=== PATIENT | male | born 1950 | race Caucasian/White ===

== ENCOUNTER 2016-09-03 22:36 | Emergency (ER) | payer OTHER ==
[~2016-09-03] VITALS: Ht 172.7 cm; Wt 84.4 kg
[2016-09-03 22:50] VITALS: BP 149/85; PULSE 82; RESP 18; TEMP 98.1; O2SAT 97
[2016-09-04 00:07] VITALS: BP 147/88; PULSE 81; RESP 18; TEMP 98.1; O2SAT 96
[2016-09-04] MEDS ORDERED: METO50TA PO (00:07)
[2016-09-04] MEDS ORDERED: SIMV5TAB3 PO (00:07)
[2016-09-04] MEDS ORDERED: LISI10TA3 PO (00:07)
[2016-09-04] MEDS ORDERED: SODIUM CHLORIDE 0.9% FLUSH 10 ML FLUSH IV FLUSH PRN (01:00)
[2016-09-04 01:05] VITALS: BP 144/81; PULSE 82; RESP 18; O2SAT 97
[2016-09-04 01:14] LABS: AUTOMATED NEUTROPHIL # 7.8 TH/MM3 (1.8-7.7); BASOPHIL # 0.1 TH/MM3 (0-0.2); BASOPHIL % 1.6 % (0.0-2.0); EOSINOPHIL # 0.1 TH/MM3 (0-0.4); EOSINOPHIL % 0.6 % (0.0-4.0); HEMATOCRIT 48.6 % (39.0-51.0); LYMPH % 8.8 % (9.0-44.0); LYMPHOCYTE # 0.8 TH/MM3 (1.0-4.8); MEAN CELL VOLUME 90.9 FL (80.0-100.0); MEAN CORPUSCULAR HEMOGLOBIN 30.4 PG (27.0-34.0); MEAN CORPUSCULAR HGB CONC 33.5 % (32.0-36.0); MONO % 4.2 % (0.0-8.0); NEUT % 84.8 % (16.0-70.0); PLATELET COUNT 238 TH/MM3 (150-450); RED BLOOD COUNT 5.35 MIL/MM3 (4.50-5.90); RED CELL DISTRIBUTION WIDTH 12.2 % (11.6-17.2); WHITE BLOOD COUNT 9.2 TH/MM3 (4.0-11.0)
[2016-09-04 01:18] LABS: CHLORIDE 103 MEQ/L (98-107); HEMO FLAGS DIFF FINAL; POTASSIUM 3.8 MEQ/L (3.5-5.1); SODIUM (NA) 141 MEQ/L (136-145)
--- NOTE | 2016-09-04 01:21 | RADHPO ---
EXAM DATE/TIME: 09/04/2016 01:03 [facility] COMPARISON: No previous studies available for comparison. INDICATIONS : Chest pain. MEDICAL HISTORY : None. SURGICAL HISTORY : CABG. ENCOUNTER: Initial ACUITY: 1 day PAIN SCORE: 5/10 LOCATION: Right chest FINDINGS: The cardiac silhouette is normal in transverse diameter. The lungs are free of acute parenchymal opac ity. No effusions are identified. Median sternotomy wires are present. There is linear atelectasis ve rsus scar on the left. CONCLUSION: 1. Subsegmental atelectasis versus scar left base. There is no evidence of pneumonia. Fernando Martines MD on September 04, 2016 at 1:19 Board Certified Radiologist. This report was verified electronically.
[2016-09-04 01:22] LABS: ANION GAP 11 MEQ/L (5-15); APTT (PATIENT) 27.2 SEC (24.3-30.1); BICARBONATE 27.2 MEQ/L (21.0-32.0); BLOOD UREA NITROGEN 16 MG/DL (7-18); MAGNESIUM 2.5 MG/DL (1.5-2.5); PROTHROMBIN TIME - PATIENT 10.8 SEC (9.8-11.6)
[2016-09-04 01:25] LABS: ALT (GPT) 27 U/L (12-78); AST (GOT) 16 U/L (15-37); GLOMERULAR FILTRATION RATE 67 ML/MIN (>89)
[2016-09-04 01:26] LABS: TOTAL BILIRUBIN ADULT 0.6 MG/DL (0.2-1.0)
[2016-09-04 01:28] LABS: ALKALINE PHOSPHATASE 96 U/L (45-117)
[2016-09-04 01:32] LABS: CREATINE KINASE 74 U/L (39-308)
[2016-09-04] MEDS ORDERED: IOHEXOL 350 MG/ML 10 ML VIAL (for RAD DIAG) IV ONE (01:52)
--- NOTE | 2016-09-04 02:19 | PD ---
HPI Chief Complaint: Flank/Kidney Pain Time Seen by Provider: 00:46 Travel History International Travel<30 days: No Contact w/Intl Traveler<30days: No Traveled to known affect area: No History of Present Illness HPI 65-year-old male presents to the emergency department by private transportation for complaint of right-sided flank pain and right upper quadrant pain times one day. Patient states recently he has had difficulty with taking oral intake due to complications from a dental extraction 6 days ago. Patient had reportedly an adverse/allergic reaction to amoxicillin with tongue swelling subsequently developed oral candidiasis and only today was he able to take any solid foods and prepared himself rice and carrots with butter. Patient noted after eating food started developing pain in the right flank and right upper quadrant area. No prior history of gallbladder disease or kidney stones. No fever or chills. Nausea without vomiting no hematemesis coffee-ground emesis or bilious emesis. Patient denies chest pain. Patient does have history of cardiac disease in the past. Patient reports pain is verbal 4-7/10 in intensity. Prior history of CAD , myocardial infarction, hypertension, dyslipidemia, cardiac catheterization with stent placement, and CABG. [facility] Past Medical History Narrative Medical CAD, cardiac catheterization, myocardial infarction, stent placement, CABG, hypertension, dyslipidemia, borderline diabetes, dental extraction; no tobacco use; nursing notes reviewed Cardiac Catheterization: Yes Cardiovascular Problems: Yes High Cholesterol: Yes Diminished Hearing: No Hypertension: Yes Myocardial Infarction: Yes Tetanus Vaccination: Unknown Influenza Vaccination: Yes Past Surgical History Cardiac Surgery: Yes Coronary Artery Bypass Graft: Yes Coronary Stent: Yes Oral Surgery: Yes (teeth removed) Social History Alcohol Use: No Tobacco Use: No Substance Use: No Allergies-Medications (Allergen,Severity, Reaction): Coded Allergies: Amoxicillin (Verified Allergy, Intermediate, rash, 09/04/16) Reported Meds & Prescriptions Reported Meds & Active Scripts Active Lortab (Hydrocodone-Acetaminophen) 5-325 Mg Tab 1 Tab PO Q6H PRN Zofran Odt (Ondansetron Odt) 4 Mg Tab 4 Mg SL Q6HR PRN Reported Lisinopril 10 Mg Tab 10 Mg PO DAILY Metoprolol Tartrate 50 Mg Tab 50 Mg PO DAILY Simvastatin 5 Mg Tab 5 Mg PO DAILY Review of Systems Except as stated in HPI: all other systems reviewed are Neg General / Constitutional: No: Fever, Chills HENT: No: Congestion Cardiovascular: No: Chest Pain or Discomfort Respiratory: No: Shortness of Breath Gastrointestinal: Positive: Nausea, Abdominal Pain, No: Vomiting Genitourinary: Positive: Flank Pain, No: Dysuria, Hematuria, Decreased Urinary Output Musculoskeletal: No: Myalgias, Arthralgias Skin: No Rash Neurologic: No: Weakness, Dizziness Psychiatric: No: Anxiety Endocrine: No: Cold Intolerance Hematologic/Lymphatic: No: Easy Bruising Physical Exam Narrative GENERAL: Well-developed well-nourished male in no acute distress no respiratory distress SKIN: Warm and dry. HEAD: Normocephalic. EYES: No scleral icterus. No injection or drainage. NECK: Supple, trachea midline. No JVD or lymphadenopathy. CARDIOVASCULAR: Regular rate and rhythm without murmurs, gallops, or rubs. RESPIRATORY: Breath sounds equal bilaterally. No accessory muscle use. GASTROINTESTINAL: Abdomen soft, right upper quadrant and epigastric tenderness without guarding or rebound, nondistended. MUSCULOSKELETAL: No cyanosis, or edema. BACK: Nontender without obvious deformity. Right-sided flank/CVA tenderness. Data Data Last Documented VS Vital Signs Date Time Temp Pulse Resp B/P Pulse Ox O2 Delivery O2 Flow Rate FiO2 09/04/16 04:32 76 18 97 09/04/16 04:15 148/82 Room Air 09/04/16 00:07 98.1 Orders Complete Blood Count With Diff (09/04/16 00:46) Comprehensive Metabolic Panel (09/04/16 00:46) Lipase (09/04/16 00:46) Prothrombin Time / Inr (Pt) (09/04/16 00:46) Act Partial Throm Time (Ptt) (09/04/16 00:46) Urinalysis - C+S If Indicated (09/04/16 00:46) Ct Abd/Pel W Iv Contrast(Rout) (09/04/16 00:46) Iv Access Insert/Monitor (09/04/16 00:46) Ecg Monitoring (09/04/16 00:46) Oximetry (09/04/16 00:46) Sodium Chloride 0.9% Flush (Ns Flush) (09/04/16 01:00) Chest, Single Ap (09/04/16 00:46) Troponin I (09/04/16 00:46) Ckmb (Isoenzyme) Profile (09/04/16 00:46) Magnesium (Mg) (09/04/16 00:46) Iohexol 350 Inj (Omnipaque 350 Inj) (09/04/16 01:52) Ondansetron Inj (Zofran Inj) (09/04/16 03:15) Hydromorphone Pf Inj (Dilaudid Pf Inj) (09/04/16 03:15) Sodium Chlor 0.9% 1000 Ml Inj (Ns 1000 M (09/04/16 03:15) NPO (09/04/16 03:03) Labs Laboratory Tests Test 09/04/16 09/04/16 00:40 02:35 White Blood Count 9.2 TH/MM3 Red Blood Count 5.35 MIL/MM3 Hemoglobin 16.3 GM/DL Hematocrit 48.6 % Mean Corpuscular Volume 90.9 FL Mean Corpuscular Hemoglobin 30.4 PG Mean Corpuscular Hemoglobin 33.5 % Concent Red Cell Distribution Width 12.2 % Platelet Count 238 TH/MM3 Mean Platelet Volume 10.4 FL Neutrophils (%) (Auto) 84.8 % Lymphocytes (%) (Auto) 8.8 % Monocytes (%) (Auto) 4.2 % Eosinophils (%) (Auto) 0.6 % Basophils (%) (Auto) 1.6 % Neutrophils # (Auto) 7.8 TH/MM3 Lymphocytes # (Auto) 0.8 TH/MM3 Monocytes # (Auto) 0.4 TH/MM3 Eosinophils # (Auto) 0.1 TH/MM3 Basophils # (Auto) 0.1 TH/MM3 CBC Comment DIFF FINAL Differential Comment Prothrombin Time 10.8 SEC Prothromb Time International 1.0 RATIO Ratio Activated Partial 27.2 SEC Thromboplast Time Sodium Level 141 MEQ/L Potassium Level 3.8 MEQ/L Chloride Level 103 MEQ/L Carbon Dioxide Level 27.2 MEQ/L Anion Gap 11 MEQ/L Blood Urea Nitrogen 16 MG/DL Creatinine 1.10 MG/DL Estimat Glomerular Filtration 67 ML/MIN Rate Random Glucose 165 MG/DL Calcium Level 9.7 MG/DL Magnesium Level 2.5 MG/DL Total Bilirubin 0.6 MG/DL Aspartate Amino Transf 16 U/L (AST/SGOT) Alanine Aminotransferase 27 U/L (ALT/SGPT) Alkaline Phosphatase 96 U/L Total Creatine Kinase 74 U/L Troponin I LESS THAN 0.02 NG/ML Total Protein 7.9 GM/DL Albumin 4.0 GM/DL Lipase 203 U/L Urine Color YELLOW Urine Turbidity CLEAR Urine pH 5.5 Urine Specific [place] GREATER THAN 1.035 Urine Protein TRACE mg/dL Urine Glucose (UA) NEG mg/dL Urine Ketones TRACE mg/dL Urine Occult Blood NEG Urine Nitrite NEG Urine Bilirubin NEG Urine Leukocyte Esterase NEG Urine RBC 0-2 /hpf Urine WBC 0-2 /hpf Urine Squamous Epithelial 0-5 /hpf Cells Urine Calcium Oxalate Crystals MOD /hpf Urine Bacteria NONE /hpf Microscopic Urinalysis Comment CULT NOT INDICATED MDM Medical Decision Making Medical Screen Exam Complete: Yes Emergency Medical Condition: Yes Medical Record Reviewed: Yes Interpretation(s) CBC & BMP Diagram 09/04/16 00:40 Vital Signs Date Time Temp Pulse Resp B/P Pulse Ox O2 Delivery O2 Flow Rate FiO2 09/04/16 01:05 82 18 144/81 97 Room Air 09/04/16 00:10 82 18 09/04/16 00:07 98.1 81 18 147/88 96 09/03/16 22:50 98.1 82 18 149/85 97 Last Impressions Chest X-Ray 09/04/1645 Signed Impressions: Service Date/Time: Sunday, September 04, 2016 01:03 - CONCLUSION: 1. Subsegmental atelectasis versus scar left base. There is no evidence of pneumonia. Fernando Martines MD Abdomen/Pelvis CT 09/04/1645 Signed Impressions: Service Date/Time: Sunday, September 04, 2016 01:43 - CONCLUSION: 1. No evidence of acute abdominal or pelvic process. No masses are identified. 2. 4 mm stone within the neck of the gallbladder without pericholecystic fluid or ductal dilatation Fernando Martines MD Differential Diagnosis Abdominal pain, cholecystitis, choledocholithiasis, pancreatitis, peptic ulcer disease, atypical chest pain, renal colic, musculoskeletal pain, shingles Narrative Course Patient placed on radiographer cardiac catheterization IV access obtained specimens collected and sent for resulting CT abdomen and pelvis ordered Lab values pending EKG normal sinus rhythm rate [address] elevation or injury pattern change noted age-indeterminate QS inferiorly with nonspecific anterior T wave changes CBC with automated differential total white cell count within normal limits 84% neutrophils by automated differential CK 74, not elevated; troponin I less than 0.02, not elevated At 3:50 AM patient reassessed abdomen is soft nontender no guarding or rebound no reproducible Blanton's sign. Patient's case discussed with on-call general surgery request patient to follow up as an outpatient for offices on Tuesday call office on Tuesday to schedule appointment return to the emergency department subsequently for any recurrent symptoms or change in condition Physician Communication Physician Communication discussed with Dr Holly ---will see in the office on Tuesday Diagnosis Primary Impression: Biliary colic Additional Impression: Gallstone Qualified Code: K80.20 - Calculus of gallbladder without cholecystitis without obstruction Patient Instructions: Narcotic given in the ED, General Instructions Additional Instructions: Follow clear liquid diet for next 12-24 hours advance as tolerated to bland/ Huy diet avoiding fried and fatty foods Follow-up with general surgeon on Tuesday call office on Tuesday to schedule follow-up appointment with Dr. Holly Return to the emergency department for pain fever vomiting or any concerns Take chronic medications as chronically prescribed Takes Zofran as prescribed as needed for nausea and/or vomiting Take acetaminophen/Tylenol as often as every 4 hours as needed for minor pain or for fever 100.4F or greater Med/Other Pt SpecificInfo: Prescription(s) given Scripts Hydrocodone-Acetaminophen (Lortab)5-325 Mg Tab1 Tab PO Q6H PRN (PAIN) #5 TAB Ref 0 Prov:Nicci Snider MD 09/04/16 Ondansetron Odt (Zofran Odt)4 Mg Tab4 Mg SL Q6HR PRN (Nausea/Vomiting) #10 TAB Ref 0 Prov:Nicci Snider MD 09/04/16 Disposition: 01 DISCHARGE HOME Condition: Stable Nicci Snider MD Sep 04, 2016 02:19
--- NOTE | 2016-09-04 02:35 | RADHPO ---
EXAM DATE/TIME: 09/04/2016 01:43 [facility] COMPARISON: No previous studies available for comparison. INDICATIONS : Right sided flank pain. IV CONTRAST: 96 cc Omnipaque 350 (iohexol) IV ORAL CONTRAST: No oral contrast ingested. RADIATION DOSE: 15.89 CTDIvol (mGy) MEDICAL HISTORY : Myocardial infarction. Hypertension. SURGICAL HISTORY : CABG Coronary artery stent. ENCOUNTER: Initial ACUITY: 1 day PAIN SCALE: 7/10 LOCATION: Right flank TECHNIQUE: Volumetric scanning of the abdomen and pelvis was performed. Using automated exposure control and ad justment of the mA and/or kV according to patient size, radiation dose was kept as low as reasonably achievable to obtain optimal diagnostic quality images. FINDINGS: There is parenchymal scarring bilaterally. The liver and spleen are normal in size and no focal defec ts are identified. There is a gallstone in the neck of the gallbladder measuring 4 mm without pericho lecystic fluid. No ductal dilatation is seen. The pancreas demonstrates no evidence of mass and there is no dilatation of the pancreatic duct. The adrenal glands and kidneys appear normal bilaterally. N o hydronephrosis or mass lesions are identified. No abnormally enlarged lymph nodes are identified. Examination of the pelvis demonstrates no evidence of free fluid or pelvic mass. No abnormally enlarg ed inguinal or retroperitoneal lymph nodes are present. The bladder is unremarkable. CONCLUSION: 1. No evidence of acute abdominal or pelvic process. No masses are identified. 2. 4 mm stone within the neck of the gallbladder without pericholecystic fluid or ductal dilatation Fernando Martines MD on September 04, 2016 at 2:30 Board Certified Radiologist. This report was verified electronically.
[2016-09-04 02:48] LABS: BLOOD, URINE NEG (NEG); GLUCOSE,URINE NEG (NEG); KETONE, URINE TRACE mg/dL (NEG); NITRITE,URINE NEG (NEG); PH, URINE 5.5 (5.0-8.5)
[2016-09-04 02:58] LABS: URINE COLOR YELLOW (YELLW/STRAW)
[2016-09-04 02:59] LABS: CALCIUM OXALATE CRYSTALS,URINE MOD /hpf; COMMENT (UR) CULT NOT INDICATED; CULTURE IF INDICATED CULT NOT INDICATED; RBC, URINE 0-2 /hpf (0-3); SQUAMOUS EPITHELIAL CELL URINE 0-5 /hpf (0-5); WBC, URINE 0-2 /hpf (0-5)
[2016-09-04 03:04] VITALS: BP 158/83; PULSE 78; RESP 18; O2SAT 97
[2016-09-04] MEDS ORDERED: HYDROmorphone HCL PF 1 MG/ML VIAL IV PUSH ONE (03:15)
[2016-09-04] MEDS ORDERED: ONDANSETRON HCL 4 MG/2 ML VIAL IV PUSH ONE (03:15)
[2016-09-04] MEDS ORDERED: SODIUM CHLOR 0.9% 1000 ML INJ 1,000 ML IV SCH (03:15)
[2016-09-04] MEDS ORDERED: HYDR-3533 PO (04:10)
[2016-09-04] MEDS ORDERED: ZOFR4TAB3 SL (04:10)
[2016-09-04 04:15] VITALS: BP 148/82; PULSE 78; RESP 18; O2SAT 97
--- NOTE | 2016-09-05 15:09 | EKG ---
Date Performed: 09/03/2016 Time Performed: 22:41:04 PTAGE: 65 years EKG: Sinus rhythm . Small inferior Q waves of undetermined significance. Abnormal ECG NO PREVIOUS TRACING DOCTOR: Ilan Lane Interpretating Date/Time 09/05/2016 15:08:33
== END 2016-09-04 04:33 | disposition home or self-care (01) ==
LOC: PHED 22:36
DX: K80.50 Calculus of bile duct without cholangitis or cholecystitis without obstruction (principal); K80.20 Calculus of gallbladder without cholecystitis without obstruction; E78.00 Pure hypercholesterolemia, unspecified; I10 Essential (primary) hypertension; I25.2 Old myocardial infarction; R94.31 Abnormal electrocardiogram [ECG] [EKG]; Z95.1 Presence of aortocoronary bypass graft; Z95.5 Presence of coronary angioplasty implant and graft
CPT/HCPCS: 71010; 74177; 80053; 81001; 82550; 83690; 83735; 84484; 85025; 85610; 85730; 93005; 96361; 96374; 96375; 99284; J1170; J2405; J7030; Q9967

== ENCOUNTER 2017-04-15 15:50 | Emergency (ER) | payer OTHER ==
[~2017-04-15] VITALS: Ht 172.7 cm; Wt 85.5 kg
[~2017-04-15 15:50] MED LIST: HYDR-3533 PO; LISI10TA3 PO; METO50TA PO; SIMV5TAB3 PO; ZOFR4TAB3 SL
[2017-04-15 15:54] VITALS: BP 185/88; PULSE 77; RESP 16; TEMP 97.7; O2SAT 99
[2017-04-15 16:28] LABS: BLOOD, URINE LARGE (NEG); GLUCOSE,URINE NEG (NEG); KETONE, URINE NEG (NEG); NITRITE,URINE NEG (NEG)
[2017-04-15 16:36] LABS: METHOD OF COLLECTION CLEAN CATCH; URINE COLOR YELLOW (YELLW/STRAW)
[2017-04-15 16:37] LABS: COMMENT (UR) CULT NOT INDICATED; CULTURE IF INDICATED CULT NOT INDICATED; MUCUS URINE FEW /lpf (OCC); SQUAMOUS EPITHELIAL CELL URINE 0-5 /hpf (0-5)
[2017-04-15] MEDS ORDERED: SODIUM CHLOR 0.9% 1000 ML INJ 1,000 ML IV ONE (16:45)
[2017-04-15] MEDS ORDERED: KETOROLAC TROMETHAMINE 30 MG/ML (IVP) VIAL IV PUSH ONE (16:45)
[2017-04-15] MEDS ORDERED: MORPHINE SULFATE 4 MG/ML INJ IV PUSH ONE (16:45)
[2017-04-15 16:55] LABS: CHLORIDE 103 MEQ/L (98-107); POTASSIUM 4.3 MEQ/L (3.5-5.1); SODIUM (NA) 137 MEQ/L (136-145)
[2017-04-15 16:58] LABS: ANION GAP 7 MEQ/L (5-15); BICARBONATE 27.2 MEQ/L (21.0-32.0); BLOOD UREA NITROGEN 10 MG/DL (7-18)
[2017-04-15 17:01] LABS: ALT (GPT) 19 U/L (12-78); AST (GOT) 10 U/L (15-37); GLOMERULAR FILTRATION RATE 51 ML/MIN (>89)
[2017-04-15 17:03] LABS: TOTAL BILIRUBIN ADULT 0.7 MG/DL (0.2-1.0)
[2017-04-15 17:04] LABS: ALKALINE PHOSPHATASE 137 U/L (45-117)
[2017-04-15 17:09] LABS: AUTOMATED NEUTROPHIL # 13.7 TH/MM3 (1.8-7.7); BASOPHIL # 0.2 TH/MM3 (0-0.2); BASOPHIL % 1.2 % (0.0-2.0); EOSINOPHIL # 0.1 TH/MM3 (0-0.4); EOSINOPHIL % 0.6 % (0.0-4.0); HEMATOCRIT 47.5 % (39.0-51.0); LYMPH % 6.5 % (9.0-44.0); MEAN CELL VOLUME 88.6 FL (80.0-100.0); MEAN CORPUSCULAR HGB CONC 33.9 % (32.0-36.0); MONO % 3.6 % (0.0-8.0); NEUT % 88.1 % (16.0-70.0); PLATELET COUNT 237 TH/MM3 (150-450); RED BLOOD COUNT 5.37 MIL/MM3 (4.50-5.90); RED CELL DISTRIBUTION WIDTH 12.9 % (11.6-17.2); WHITE BLOOD COUNT 15.6 TH/MM3 (4.0-11.0)
--- NOTE | 2017-04-15 17:18 | RADRPT ---
EXAM DATE/TIME: 04/15/2017 17:02 [facility] COMPARISON: No previous studies available for comparison. INDICATIONS : Right flank pain. ORAL CONTRAST: No oral contrast ingested. RADIATION DOSE: 15.45 CTDIvol (mGy) MEDICAL HISTORY : Cardiovascular disease. Myocardial infarction. Hypertension. SURGICAL HISTORY : CABG Cholecystectomy. ENCOUNTER: Initial ACUITY: 1 day PAIN SCALE: 7/10 LOCATION: Right flank TECHNIQUE: Volumetric scanning of the abdomen and pelvis was performed. Using automated exposure control and ad justment of the mA and/or kV according to patient size, radiation dose was kept as low as reasonably achievable to obtain optimal diagnostic quality images. DICOM format image data is available electro nically for review and comparison. FINDINGS: LOWER LUNGS: The visualized lower lungs are clear except small right pleural effusion with mild prominence of the pleura. LIVER: Homogeneous density without lesion. There is no dilation of the biliary tree. Status post cholecyste ctomy although there is a 4 x 2 mm stone possibly within the distal common bile duct. SPLEEN: Normal size without lesion. PANCREAS: Within normal limits. KIDNEYS: Normal in size and shape. There is no mass, stone, or hydronephrosis. There is minimal prominence of the right ureter compared to the previous study ADRENAL GLANDS: Within normal limits. VASCULAR: There is no aortic aneurysm. BOWEL/MESENTERY: The stomach, small bowel, and colon demonstrate no acute abnormality. There is no free intraperitone al air or fluid. ABDOMINAL WALL: Within normal limits. RETROPERITONEUM: There is no lymphadenopathy. BLADDER: No wall thickening or mass. 2 mm stone central bladder REPRODUCTIVE: Within normal limits. INGUINAL: There is no lymphadenopathy or hernia. MUSCULOSKELETAL: Within normal limits for patient age. CONCLUSION: Questionable gallstone in the distal common bile duct. 2 mm stone within the bladder may have been pa ssed from the right kidney with mild prominence of the right ureter. Arya Urena MD on April 15, 2017 at 17:13 Board Certified Radiologist. This report was verified electronically.
[2017-04-15 17:24] LABS: HEMO FLAGS DIFF FINAL
[2017-04-15] MEDS ORDERED: HYDR-3516 PO (17:44)
[2017-04-15] MEDS ORDERED: ZOFR4TAB3 SL (17:44)
--- NOTE | 2017-04-15 17:44 | PD ---
HPI Chief Complaint: Flank/Kidney Pain Time Seen by Provider: 16:17 Travel History International Travel<30 days: No Contact w/Intl Traveler<30days: No Traveled to known affect area: No History of Present Illness HPI This is a 66-year-old male who presents to the emergency department with 1 day of severe right sided flank pain, constant, radiating into the right abdomen associated with nausea and diaphoresis. He's never had pain like this before. He says he feels like yes to urinate but he can't. He denies any hematuria. He denies any fevers or chills. He has had a cholecystectomy this year. PFSH Past Medical History Cardiac Catheterization: Yes Cardiovascular Problems: Yes (Open Heart) High Cholesterol: Yes Coronary Artery Disease: Yes Diminished Hearing: No Hypertension: Yes Myocardial Infarction: Yes Past Surgical History Cardiac Surgery: Yes Cholecystectomy: Yes Coronary Artery Bypass Graft: Yes Coronary Stent: Yes Oral Surgery: Yes (teeth removed) Social History Alcohol Use: Yes (RARE) Tobacco Use: No Substance Use: No Allergies-Medications (Allergen,Severity, Reaction): Coded Allergies: amoxicillin (Unverified Allergy, Intermediate, rash, 04/15/17) Reported Meds & Prescriptions Reported Meds & Active Scripts Active Reported Lisinopril 10 Mg Tab 10 Mg PO DAILY Metoprolol Tartrate 50 Mg Tab 50 Mg PO DAILY Simvastatin 5 Mg Tab 5 Mg PO DAILY Review of Systems Except as stated in HPI: all other systems reviewed are Neg Physical Exam Narrative GENERAL: Pacing in the room, uncomfortable appearing SKIN: Focused skin assessment warm and dry. HEAD: Atraumatic. Normocephalic. EYES: Pupils equal and round. No injection or drainage. ENT: Moist mucous membranes NECK: Trachea midline. CARDIOVASCULAR: Regular rate and rhythm. No murmur appreciated. RESPIRATORY: Clear to auscultation. Breath sounds equal bilaterally. GASTROINTESTINAL: Abdomen soft, tender to palpation in the right lower quadrant with no rebound or guarding. : Right CVA tenderness MUSCULOSKELETAL: No obvious deformities. NEUROLOGICAL: Awake and alert. No obvious cranial nerve deficits. Moving all extremities. PSYCHIATRIC: Appropriate mood and affect; insight and judgment normal. Data Data Last Documented VS Vital Signs Date Time Temp Pulse Resp B/P (MAP) Pulse Ox O2 Delivery O2 Flow Rate FiO2 04/15/17 15:54 97.7 77 16 185/88 (120) 99 Orders Orders Urinalysis - C+S If Indicated (04/15/17 16:13) Complete Blood Count With Diff (04/15/17 16:31) Comprehensive Metabolic Panel (04/15/17 16:31) ^ Insert Iv (04/15/17 16:31) Ct Abd/Pel W/O Iv Contrast (04/15/17 ) Ketorolac Inj (Toradol Inj) (04/15/17 16:45) Morphine Inj (Morphine Inj) (04/15/17 16:45) Sodium Chlor 0.9% 1000 Ml Inj (Ns 1000 M (04/15/17 16:45) Labs Laboratory Tests Test 04/15/17 16:15 04/15/17 16:40 Urine Collection Type CLEAN CATCH Urine Color YELLOW Urine Turbidity SLIGHT Urine pH 5.0 Urine Specific [place] 1.028 Urine Protein 100 mg/dL Urine Glucose (UA) NEG mg/dL Urine Ketones NEG mg/dL Urine Occult Blood LARGE Urine Nitrite NEG Urine Bilirubin NEG Urine Leukocyte Esterase NEG Urine RBC 25-49 /hpf Urine Squamous Epithelial Cells 0-5 /hpf Urine Amorphous Sediment MOD Urine Mucus FEW /lpf Microscopic Urinalysis Comment CULT NOT INDICATED Urine Collection Time 16:15 White Blood Count 15.6 TH/MM3 Red Blood Count 5.37 MIL/MM3 Hemoglobin 16.1 GM/DL Hematocrit 47.5 % Mean Corpuscular Volume 88.6 FL Mean Corpuscular Hemoglobin 30.0 PG Mean Corpuscular Hemoglobin Concent 33.9 % Red Cell Distribution Width 12.9 % Platelet Count 237 TH/MM3 Mean Platelet Volume 10.4 FL Neutrophils (%) (Auto) 88.1 % Lymphocytes (%) (Auto) 6.5 % Monocytes (%) (Auto) 3.6 % Eosinophils (%) (Auto) 0.6 % Basophils (%) (Auto) 1.2 % Neutrophils # (Auto) 13.7 TH/MM3 Lymphocytes # (Auto) 1.0 TH/MM3 Monocytes # (Auto) 0.6 TH/MM3 Eosinophils # (Auto) 0.1 TH/MM3 Basophils # (Auto) 0.2 TH/MM3 CBC Comment DIFF FINAL Differential Comment Blood Urea Nitrogen 10 MG/DL Creatinine 1.40 MG/DL Random Glucose 161 MG/DL Total Protein 8.2 GM/DL Albumin 4.1 GM/DL Calcium Level 10.1 MG/DL Alkaline Phosphatase 137 U/L Aspartate Amino Transf (AST/SGOT) 10 U/L Alanine Aminotransferase (ALT/SGPT) 19 U/L Total Bilirubin 0.7 MG/DL Sodium Level 137 MEQ/L Potassium Level 4.3 MEQ/L Chloride Level 103 MEQ/L Carbon Dioxide Level 27.2 MEQ/L Anion Gap 7 MEQ/L Estimat Glomerular Filtration Rate 51 ML/MIN MDM Medical Decision Making Medical Screen Exam Complete: Yes Emergency Medical Condition: Yes Interpretation(s) Leukocytosis 88% neutrophils Mild renal insufficiency Urinalysis: Red blood cells with no infection Last 24 hours Impressions Abdomen/Pelvis CT 04/15/17 0000 Signed Impressions: Service Date/Time: Tuesday, April 15, 2017 17:02 - CONCLUSION: Questionable gallstone in the distal common bile duct. 2 mm stone within the bladder may have been passed from the right kidney with mild prominence of the right ureter. Arya Urena MD Differential Diagnosis Nephrolithiasis, pyelonephritis, appendicitis, ruptured abdominal aortic aneurysm Narrative Course This is a 66-year-old male who presents to the emergency department with right sided flank and abdominal pain. Clinically he appears to have a kidney stone. CT abdomen and pelvis was obtained which demonstrates a 2 mm stone in the bladder. On reassessment the patient has had complete relief of his symptoms. I suspect this was what was causing his symptoms. Labs are obtained which demonstrate a leukocytosis but urinalysis is negative for infection so I suspect this is a stress response. Patient will be discharged home with some pain control and was asked to follow-up with a urologist. Diagnosis Primary Impression: Kidney stone Patient Instructions: General Instructions Additional Instructions: If you develop severe pain, inability to eat or drink, or fever return to the emergency department. Use a strainer to try to catch your stone. Take percocet as needed for pain, and continue taking zofran as needed for nausea. Complete your course of tamsulosin. Follow up with urology as soon as possible. Med/Other Pt SpecificInfo: Prescription(s) given Scripts Ondansetron Odt (Zofran Odt) 4 Mg Tab 4 MG SL Q6HR Y for Nausea/Vomiting, #10 TAB 0 Refills Prov: Lilian Kerr MD 04/15/17 Hydrocodone/Acetaminophen (Hydrocodone-Acetamin 5-325 mg) 5 Mg-325 Mg Tablet 1 TAB PO Q6HR Y for PAIN SCALE 4 TO 10, #7 Prov: Lilian Kerr MD 04/15/17 Disposition: 01 DISCHARGE HOME Condition: Stable Lilian Kerr MD Apr 15, 2017 17:44
[2017-04-15 17:57] VITALS: BP 111/64; PULSE 68; RESP 16; O2SAT 94
== END 2017-04-15 18:01 | disposition home or self-care (01) ==
LOC: PHED 15:50
DX: N21.0 Calculus in bladder (principal)
CPT/HCPCS: 74176; 80053; 81001; 85025; 96361; 96374; 96375; 99285; J1885; J2270; J7030

== ENCOUNTER 2017-06-08 15:06 | Emergency (ER) | payer OTHER ==
[~2017-06-08] VITALS: Ht 172.7 cm; Wt 86.0 kg
[~2017-06-08 15:06] MED LIST changes: +HYDR-3516 PO; -HYDR-3533 PO
[2017-06-08 15:14] VITALS: BP 164/79; PULSE 68; RESP 18; TEMP 97.6; O2SAT 96
[2017-06-08 15:34] LABS: BILIRUBIN, URINE NEG (NEG); BLOOD, URINE LARGE (NEG); GLUCOSE,URINE NEG (NEG); KETONE, URINE TRACE mg/dL (NEG); NITRITE,URINE NEG (NEG); PH, URINE 5.5 (5.0-8.5); URINE LEUKOCYTE ESTERASE NEG (NEG)
[2017-06-08 15:38] LABS: URINE COLOR YELLOW (YELLW/STRAW)
[2017-06-08 15:40] LABS: MUCUS URINE MANY /lpf (OCC)
[2017-06-08 15:41] LABS: AMORPHOUS SEDIMENT, URINE MOD; CALCIUM OXALATE CRYSTALS,URINE MOD /hpf; SQUAMOUS EPITHELIAL CELL URINE 0-5 /hpf (0-5)
[2017-06-08 16:28] VITALS: O2SAT 98
[2017-06-08] MEDS ORDERED: ONDANSETRON HCL 4 MG/2 ML VIAL IV PUSH ONE (16:30)
[2017-06-08] MEDS ORDERED: SODIUM CHLOR 0.9% 1000 ML INJ 1,000 ML IV SCH (16:30)
[2017-06-08] MEDS ORDERED: MORPHINE SULFATE 2 MG/ML INJ IV PUSH ONE (16:30)
[2017-06-08] MEDS ORDERED: KETOROLAC TROMETHAMINE 30 MG/ML (IVP) VIAL IV PUSH ONE (16:30)
--- NOTE | 2017-06-08 16:37 | PD ---
HPI Chief Complaint: Flank/Kidney Pain Time Seen by Provider: 16:20 Travel History International Travel<30 days: No Contact w/Intl Traveler<30days: No Traveled to known affect area: No History of Present Illness HPI 66-year-old male complains of left flank pain and nausea. Patient states that the symptoms started this afternoon. Patient states that he had a history kidney stone in the past. Patient has not seen a urologist in the past for kidney stone. Patient states that he was seen by personal physician for that. Patient states the pain as severe pain sharp pain started on the left flank area with radiation down the left side abdomen. Patient denies any fever chills. Patient denies any dysuria frequency. Patient states that he has nausea but no vomiting or diarrhea. On a scale of 1-10 the pain as a 10. PFSH Past Medical History Cardiac Catheterization: Yes Cardiovascular Problems: Yes (Open Heart, MS X 2 ) High Cholesterol: Yes Coronary Artery Disease: Yes Diminished Hearing: No Hypertension: Yes Myocardial Infarction: Yes Tetanus Vaccination: Unknown Influenza Vaccination: Yes Past Surgical History Cardiac Surgery: Yes Cholecystectomy: Yes Coronary Artery Bypass Graft: Yes Coronary Stent: Yes Oral Surgery: Yes (teeth removed) Social History Alcohol Use: Yes (OCC) Tobacco Use: No Substance Use: No Allergies-Medications (Allergen,Severity, Reaction): Coded Allergies: amoxicillin (Unverified Allergy, Intermediate, rash, 06/08/17) Reported Meds & Prescriptions Reported Meds & Active Scripts Active Reported Lisinopril 10 Mg Tab 10 Mg PO DAILY Metoprolol Tartrate 50 Mg Tab 50 Mg PO DAILY Simvastatin 5 Mg Tab 5 Mg PO DAILY Review of Systems General / Constitutional: No: Fever Eyes: No: Visual changes HENT: No: Headaches Cardiovascular: No: Chest Pain or Discomfort Respiratory: No: Shortness of Breath Gastrointestinal: Positive: Nausea, Abdominal Pain Genitourinary: No: Dysuria Musculoskeletal: No: Pain Skin: No Rash Neurologic: No: Weakness Psychiatric: No: Depression Endocrine: No: Polydipsia Hematologic/Lymphatic: No: Easy Bruising Physical Exam Narrative GENERAL: Well-nourished, well-developed patient. SKIN: Focused skin assessment warm/dry. HEAD: Normocephalic. EYES: No scleral icterus. No injection or drainage. NECK: Supple, trachea midline. No JVD or lymphadenopathy. CARDIOVASCULAR: Regular rate and rhythm without murmurs, gallops, or rubs. RESPIRATORY: Breath sounds equal bilaterally. No accessory muscle use. GASTROINTESTINAL: Abdomen soft, nondistended. Patient has moderate tenderness to palpation left side of the abdomen. No rebound tenderness. No mass. MUSCULOSKELETAL: No cyanosis, or edema. BACK: Patient has moderate tenderness on palpation left flank area, without obvious deformity. Neurologic exam normal. Data Data Last Documented VS Vital Signs Date Time Temp Pulse Resp B/P (MAP) Pulse Ox O2 Delivery O2 Flow Rate FiO2 06/08/17 17:23 73 20 156/86 (109) 99 Room Air 06/08/17 15:14 97.6 Orders Orders Urinalysis - C+S If Indicated (06/08/17 15:17) Complete Blood Count With Diff (06/08/17 16:24) Comprehensive Metabolic Panel (06/08/17 16:24) Prothrombin Time / Inr (Pt) (06/08/17 16:24) Act Partial Throm Time (Ptt) (06/08/17 16:24) Ct Abd/Pel W/O Iv Contrast (06/08/17 16:24) Iv Access Insert/Monitor (06/08/17 16:24) Ecg Monitoring (06/08/17 16:24) Oximetry (06/08/17 16:24) Sodium Chlor 0.9% 1000 Ml Inj (Ns 1000 M (06/08/17 16:30) Ketorolac Inj (Toradol Inj) (06/08/17 16:30) Morphine Inj (Morphine Inj) (06/08/17 16:30) Ondansetron Inj (Zofran Inj) (06/08/17 16:30) Labs Laboratory Tests Test 06/08/17 14:40 06/08/17 15:20 White Blood Count 12.9 TH/MM3 Red Blood Count 5.78 MIL/MM3 Hemoglobin 16.9 GM/DL Hematocrit 51.9 % Mean Corpuscular Volume 89.8 FL Mean Corpuscular Hemoglobin 29.2 PG Mean Corpuscular Hemoglobin Concent 32.5 % Red Cell Distribution Width 13.5 % Platelet Count 236 TH/MM3 Mean Platelet Volume 10.4 FL Neutrophils (%) (Auto) 78.1 % Lymphocytes (%) (Auto) 11.5 % Monocytes (%) (Auto) 6.9 % Eosinophils (%) (Auto) 2.2 % Basophils (%) (Auto) 1.3 % Neutrophils # (Auto) 10.0 TH/MM3 Lymphocytes # (Auto) 1.5 TH/MM3 Monocytes # (Auto) 0.9 TH/MM3 Eosinophils # (Auto) 0.3 TH/MM3 Basophils # (Auto) 0.2 TH/MM3 CBC Comment DIFF FINAL Differential Comment Prothrombin Time 10.4 SEC Prothromb Time International Ratio 1.0 RATIO Activated Partial Thromboplast Time 24.5 SEC Blood Urea Nitrogen 19 MG/DL Creatinine 1.50 MG/DL Random Glucose 165 MG/DL Total Protein 8.0 GM/DL Albumin 4.1 GM/DL Calcium Level 10.1 MG/DL Alkaline Phosphatase 130 U/L Aspartate Amino Transf (AST/SGOT) 14 U/L Alanine Aminotransferase (ALT/SGPT) 21 U/L Total Bilirubin 0.5 MG/DL Sodium Level 138 MEQ/L Potassium Level 4.1 MEQ/L Chloride Level 104 MEQ/L Carbon Dioxide Level 24.9 MEQ/L Anion Gap 9 MEQ/L Estimat Glomerular Filtration Rate 47 ML/MIN Urine Color YELLOW Urine Turbidity CLEAR Urine pH 5.5 Urine Specific [place] 1.027 Urine Protein 30 mg/dL Urine Glucose (UA) NEG mg/dL Urine Ketones TRACE mg/dL Urine Occult Blood LARGE Urine Nitrite NEG Urine Bilirubin NEG Urine Leukocyte Esterase NEG Urine RBC 25-49 /hpf Urine WBC 6-8 /hpf Urine Squamous Epithelial Cells 0-5 /hpf Urine Calcium Oxalate Crystals MOD /hpf Urine Amorphous Sediment MOD Urine Hyaline Casts 10-14 /lpf Urine Mucus MANY /lpf Microscopic Urinalysis Comment CULT NOT INDICATED MDM Medical Decision Making Medical Screen Exam Complete: Yes Emergency Medical Condition: Yes Interpretation(s) Last Impressions Abdomen/Pelvis CT 06/08/17 1624 Signed Impressions: Service Date/Time: Thursday, June 08, 2017 16:48 - CONCLUSION: 2-3 mm stone in the left UVJ causing mild obstruction. No other stones are identified. Arya Urena MD 20 01 PM. CBC with WBC 12.9. 78 neutrophils. BUN 19. Creatinine 1.50. GFR 47. Glucose 165. UA positive for RBC few WBC. Differential Diagnosis Differential diagnosis including nephrolithiasis, pyelonephritis, musculoskeletal, colitis. Narrative Course 66-year-old male with severe left flank pain. History of kidney stone in the past. Normal saline solution 1 25 cc an hour. Toradol 30 mg IV. Morphine 2 mg IV. Zofran 4 mg IV. Diagnosis Primary Impression: Nephrolithiasis Patient Instructions: General Instructions Additional Instructions: Encourage p.o. fluids. Take medication as needed for pain. Follow-up with urologist. Return if intractable pain, fever, persistent vomiting. Med/Other Pt SpecificInfo: Prescription(s) given Scripts Ondansetron Odt (Zofran Odt) 4 Mg Tab 4 MG SL Q6HR Y for Nausea/Vomiting, #12 TAB 0 Refills Prov: Kishore Gore MD 06/08/17 Tamsulosin (Flomax) 0.4 Mg Cap 0.4 MG PO HS for Manage Prostate Problems, #10 CAP 0 Refills Prov: Kishore Gore MD 06/08/17 Hydrocodone-Acetaminophen ([place]) 5 Mg-325 Mg Tab 1 TAB PO Q6H Y for PAIN, #20 TAB 0 Refills Prov: Kishore Gore MD 06/08/17 Disposition: 01 DISCHARGE HOME Condition: Stable Kishore Gore MD Jun 08, 2017 16:37
[2017-06-08 16:55] LABS: BASOPHIL # 0.2 TH/MM3 (0-0.2); BASOPHIL % 1.3 % (0.0-2.0); EOSINOPHIL # 0.3 TH/MM3 (0-0.4); EOSINOPHIL % 2.2 % (0.0-4.0); HEMATOCRIT 51.9 % (39.0-51.0); HEMOGLOBIN 16.9 GM/DL (13.0-17.0); LYMPH % 11.5 % (9.0-44.0); LYMPHOCYTE # 1.5 TH/MM3 (1.0-4.8); MEAN CELL VOLUME 89.8 FL (80.0-100.0); MEAN CORPUSCULAR HEMOGLOBIN 29.2 PG (27.0-34.0); MEAN CORPUSCULAR HGB CONC 32.5 % (32.0-36.0); MEAN PLATELET VOLUME 10.4 FL (7.0-11.0); MONO % 6.9 % (0.0-8.0); MONOCYTE # 0.9 TH/MM3 (0-0.9); NEUT % 78.1 % (16.0-70.0); PLATELET COUNT 236 TH/MM3 (150-450); RED BLOOD COUNT 5.78 MIL/MM3 (4.50-5.90); RED CELL DISTRIBUTION WIDTH 13.5 % (11.6-17.2); WHITE BLOOD COUNT 12.9 TH/MM3 (4.0-11.0)
--- NOTE | 2017-06-08 17:00 | RADRPT ---
EXAM DATE/TIME: 06/08/2017 16:48 [facility] COMPARISON: CT ABDOMEN & PELVIS W/O CONTRAST, April 15, 2017, 17:02. INDICATIONS : Left flank pain. ORAL CONTRAST: No oral contrast ingested. RADIATION DOSE: 20.58 CTDIvol (mGy) MEDICAL HISTORY : Cardiovascular disease. SURGICAL HISTORY : Cholecystectomy. ENCOUNTER: Initial ACUITY: 1 day PAIN SCALE: 10/10 LOCATION: Left flank TECHNIQUE: Volumetric scanning of the abdomen and pelvis was performed. Using automated exposure control and ad justment of the mA and/or kV according to patient size, radiation dose was kept as low as reasonably achievable to obtain optimal diagnostic quality images. DICOM format image data is available electro nically for review and comparison. FINDINGS: LOWER LUNGS: The visualized lower lungs are clear. LIVER: Homogeneous density without lesion. There is no dilation of the biliary tree. Cholecystectomy clips. SPLEEN: Normal size without lesion. PANCREAS: Within normal limits. KIDNEYS: There is mild hydronephrosis of the left kidney and mild hydroureter all the way down to the left UVJ where there is a 2-3 mm ureteral stone. The right side is unremarkable. I don't see any residual sto ne in either kidney.. ADRENAL GLANDS: Within normal limits. VASCULAR: There is no aortic aneurysm. BOWEL/MESENTERY: The stomach, small bowel, and colon demonstrate no acute abnormality. There is no free intraperitone al air or fluid. ABDOMINAL WALL: Within normal limits. RETROPERITONEUM: There is no lymphadenopathy. BLADDER: No wall thickening or mass. REPRODUCTIVE: Within normal limits. INGUINAL: There is no lymphadenopathy or hernia. MUSCULOSKELETAL: Within normal limits for patient age. CONCLUSION: 2-3 mm stone in the left UVJ causing mild obstruction. No other stones are identified. Arya Urena MD on June 08, 2017 at 16:56 Board Certified Radiologist. This report was verified electronically.
[2017-06-08 17:03] LABS: CHLORIDE 104 MEQ/L (98-107); SODIUM (NA) 138 MEQ/L (136-145)
[2017-06-08 17:07] LABS: ALBUMIN 4.1 GM/DL (3.4-5.0); BICARBONATE 24.9 MEQ/L (21.0-32.0); BLOOD UREA NITROGEN 19 MG/DL (7-18); CALCIUM 10.1 MG/DL (8.5-10.1); GLUCOSE,RANDOM 165 MG/DL (74-106); PROTHROMBIN TIME - PATIENT 10.4 SEC (9.8-11.6)
[2017-06-08 17:10] LABS: ALT (GPT) 21 U/L (12-78); AST (GOT) 14 U/L (15-37); GLOMERULAR FILTRATION RATE 47 ML/MIN (>89)
[2017-06-08 17:12] LABS: TOTAL BILIRUBIN ADULT 0.5 MG/DL (0.2-1.0)
[2017-06-08 17:13] LABS: ALKALINE PHOSPHATASE 130 U/L (45-117)
[2017-06-08 17:23] VITALS: BP 156/86; PULSE 73; RESP 20; O2SAT 99
[2017-06-08] MEDS ORDERED: NORC5TAB PO (18:09)
[2017-06-08] MEDS ORDERED: TAMS5CAP PO (18:09)
[2017-06-08] MEDS ORDERED: ZOFR4TAB3 SL (18:09)
[2017-06-08 18:19] VITALS: BP 133/80
[2017-06-10] MEDS ORDERED: ATOR40TA16 PO (08:55)
[2017-06-10] MEDS ORDERED: KETO10 PO (10:34)
== END 2017-06-08 18:29 | disposition home or self-care (01) ==
LOC: PHED 15:06
DX: N20.0 Calculus of kidney (principal); R11.0 Nausea; I10 Essential (primary) hypertension; E78.00 Pure hypercholesterolemia, unspecified; I25.2 Old myocardial infarction; Z87.442 Personal history of urinary calculi
CPT/HCPCS: 74176; 80053; 81001; 85025; 85610; 85730; 96361; 96374; 96375; 99284; J1885; J2270; J2405; J7030

== ENCOUNTER 2017-06-10 08:47 | Emergency (ER) | payer OTHER ==
[2017-06-10] MEDS: SODIUM CHLOR 0.9% 1000 ML INJ 1,000 ML IV (09:58)
[2017-06-10] MEDS: KETOROLAC TROMETHAMINE 30 MG/ML (IVP) VIAL IV PUSH (09:58)
[2017-06-10 10:10] LABS: AUTOMATED NEUTROPHIL # 10.9 TH/MM3 (1.8-7.7); BASOPHIL # 0.1 TH/MM3 (0-0.2); BASOPHIL % 1.1 % (0.0-2.0); EOSINOPHIL # 0.1 TH/MM3 (0-0.4); EOSINOPHIL % 0.5 % (0.0-4.0); HEMATOCRIT 47.1 % (39.0-51.0); HEMOGLOBIN 15.7 GM/DL (13.0-17.0); LYMPHOCYTE # 0.6 TH/MM3 (1.0-4.8); MEAN CELL VOLUME 88.6 FL (80.0-100.0); MEAN CORPUSCULAR HEMOGLOBIN 29.5 PG (27.0-34.0); MEAN CORPUSCULAR HGB CONC 33.3 % (32.0-36.0); MEAN PLATELET VOLUME 9.7 FL (7.0-11.0); MONOCYTE # 0.7 TH/MM3 (0-0.9); NEUT % 87.4 % (16.0-70.0); PLATELET COUNT 178 TH/MM3 (150-450); RED BLOOD COUNT 5.32 MIL/MM3 (4.50-5.90); RED CELL DISTRIBUTION WIDTH 13.4 % (11.6-17.2); WHITE BLOOD COUNT 12.4 TH/MM3 (4.0-11.0)
[2017-06-10 10:11] LABS: HEMO FLAGS DIFF FINAL
[2017-06-10 10:14] LABS: BILIRUBIN, URINE SMALL (NEG); BLOOD, URINE LARGE (NEG); GLUCOSE,URINE NEG (NEG); KETONE, URINE TRACE mg/dL (NEG); NITRITE,URINE NEG (NEG); PH, URINE 5.5 (5.0-8.5); URINE LEUKOCYTE ESTERASE NEG (NEG)
[2017-06-10 10:17] LABS: ANION GAP 10 MEQ/L (5-15); BICARBONATE 25.5 MEQ/L (21.0-32.0); BLOOD UREA NITROGEN 19 MG/DL (7-18); CALCIUM 9.7 MG/DL (8.5-10.1); CHLORIDE 104 MEQ/L (98-107); GLUCOSE,RANDOM 145 MG/DL (74-106); SODIUM (NA) 139 MEQ/L (136-145)
[2017-06-10 10:19] LABS: METHOD OF COLLECTION CLEAN CATCH
[2017-06-10 10:19] LABS: MUCUS URINE FEW /lpf (OCC); URINE COLOR YELLOW (YELLW/STRAW); WBC, URINE 0-2 /hpf (0-5)
[2017-06-10 10:20] LABS: COMMENT (UR) CULT NOT INDICATED; CULTURE IF INDICATED CULT NOT INDICATED; GLOMERULAR FILTRATION RATE 43 ML/MIN (>89); RBC, URINE 100-200 /hpf (0-3); SQUAMOUS EPITHELIAL CELL URINE 0-5 /hpf (0-5)
== END 2017-06-10 10:54 | disposition home or self-care (01) ==
LOC: PHED 08:47
DX: N20.1 Calculus of ureter (principal); I10 Essential (primary) hypertension
CPT/HCPCS: 80048; 81001; 85025; 96374; 99284-25